=== PATIENT | male | born 1995 | race Caucasian/White ===

== ENCOUNTER 2018-03-20 09:38 | Emergency (ER) | payer OTHER ==
[2018-03-20] MEDS ORDERED: Ibuprofen 800 MG Tab ONE (10:40)
--- NOTE | 2018-03-20 12:56 | EDM.PDOC ---
ED HPI GENERAL MEDICAL PROBLEM - General Stated Complaint: SPRAINED ANKLE Time Seen by Provider: 03/20/18 10:00 Source of Information: Reports: Patient History Limitations: Reports: No Limitations - History of Present Illness INITIAL COMMENTS - FREE TEXT/NARRATIVE: This is a 23yo M here for a left ankle injury. He states he was unable to walk on it since yesterday when he rolled it inwards. He has some swelling but is otherwise doing well. Onset: Sudden Duration: Day(s): Location: Reports: Lower Extremity, Left Quality: Reports: Ache Severity: Moderate Improves with: Reports: None Worsens with: Reports: Movement Associated Symptoms: Reports: No Other Symptoms Left Ankle Pain Score (Numeric/FACES): 4 Review of Systems - Review of Systems Review Of Systems: ROS reveals no pertinent complaints other than HPI. ED EXAM, GENERAL - Physical Exam Exam: See Below Exam Limited By: No Limitations General Appearance: Alert, WD/WN, Mild Distress Ears: Normal External Exam Nose: Normal Inspection Throat/Mouth: Normal Inspection Head: Atraumatic, Normocephalic Neck: Normal Inspection Respiratory/Chest: No Respiratory Distress Cardiovascular: Normal Peripheral Pulses Peripheral Pulses: 2+: Dorsalis Pedis (L), Dorsalis Pedis (R) Extremities: Joint Swelling Neurological: Alert, Oriented, CN II-XII Intact Course - Vital Signs Last Recorded V/S: Last Vital Signs Temp 36.8 C 03/20/18 10:04 Pulse 73 03/20/18 10:04 Resp 16 03/20/18 10:04 BP 113/70 03/20/18 10:04 Pulse Ox 98 03/20/18 10:04 - Orders/Labs/Meds Orders: Active Orders 24 hr Category Date Time Status Ankle Min 3V Lt [CR] Stat Exams 03/20/18 10:17 Taken Departure - Departure Time of Disposition: 11:00 Disposition: Home, Self-Care 01 Condition: Good Clinical Impression: High ankle sprain of left lower extremity Qualifiers: Encounter type: initial encounter Qualified Code(s): S93.432A - Sprain of tibiofibular ligament of left ankle, initial encounter - Discharge Information Instructions: Ankle Sprain, [id number] Referrals: PCP,Unknown [Primary Care Provider] - Care Plan Goals: Take Ibuprofen every 8 hrs as needed for pain. Take with food. Keep ankle wrapped with kalee as much as possible, use ice as much as possible. Keep extremity elevated. Counseled on RICE, use of crutches and gradual as tolerated weight bearing and eventual use after 1-2 weeks. Patient to f/u with PCP. - My Orders Last 24 Hours: My Active Orders 03/20/18 10:17 Ankle Min 3V Lt [CR] Stat - Assessment/Plan Last 24 Hours: My Active Orders 03/20/18 10:17 Ankle Min 3V Lt [CR] Stat
--- NOTE | 2018-03-21 08:24 | CR ---
LEFT ANKLE, 03/20/18 No priors. There is soft tissue swelling over the medial and lateral malleoli. No acute fracture or dislocation. No lytic or blastic bone lesions. [id number] [facility]
== END 2018-03-20 10:45 | disposition home or self-care (01) ==
LOC: LB.ED 09:38
DX: S93.432A Sprain of tibiofibular ligament of left ankle, initial encounter (principal); X50.9XXA Other and unspecified overexertion or strenuous movements or postures, initial encounter
CPT/HCPCS: 73610-LT; 99283; A9270-GY